=== PATIENT | female | born 1950 | race Two or more races ===

== ENCOUNTER 2019-01-04 10:00 | Inpatient (IN) | payer OTHER ==
[~2019-01-04] VITALS: Ht 167.6 cm; Wt 115.2 kg
[2019-01-04] MEDS ORDERED: MULTIPLE VITAM1 EACH PO (12:23)
[2019-01-04] MEDS ORDERED: HUMULIN (12:23)
[2019-01-04] MEDS ORDERED: SYNTHROID200 MCG PO (12:23)
[2019-01-04] MEDS ORDERED: SINGULAIR10 MG PO (12:24)
[2019-01-04] MEDS ORDERED: JARDIANCE25 MG PO (12:24)
[2019-01-04] MEDS ORDERED: LOSARTAN-HCTZ1 EAC2 PO (12:25)
[2019-01-04] MEDS ORDERED: DILTIAZEM ER180 MG PO (12:25)
[2019-01-04] MEDS ORDERED: LIPITOR20 MG PO (12:25)
[2019-01-04] MEDS ORDERED: GABAPENTIN400 MG PO (12:26)
[2019-01-04] MEDS ORDERED: CALCITRIOL PO (12:27)
[2019-01-04] MEDS ORDERED: FOLGARD TABLET1 EACH PO (12:28)
[2019-01-09] MEDS ORDERED: CALCITRIOL0.5 MCG PO (08:17)
[2019-01-11] MEDS ORDERED: ULTRACET PO (08:29)
[2019-01-11] MEDS ORDERED: INTESTINEX680 M1 PO (08:30)
[2019-01-11] MEDS ORDERED: FLAGYL500MG PO (08:30)
== END 2019-01-11 11:04 | disposition home or self-care (01) | DRG 349 ==
LOC: SURG 10:00 → SURH 01-09 07:54 → O/R 01-09 07:54 → SURH 01-09 13:27 → O/R 01-09 15:15 → SURH 01-11 11:04
PROVIDERS: ADMIT Surgery
PROC: 0KX Muscles, Transfer (ICD-10-PCS; 2019-01-09)
PROC: 0DJD8ZZ Inspection of Lower Intestinal Tract, Via Natural or Artificial Opening Endoscopic (ICD-10-PCS; 2019-01-09)
PROC: 0DBP7ZZ Excision of Rectum, Via Natural or Artificial Opening (ICD-10-PCS; principal; 2019-01-09 15:15)
DX: K62.3 Rectal prolapse (principal); K62.2 Anal prolapse; K59.04 Chronic idiopathic constipation; R15.9 Full incontinence of feces; R15.2 Fecal urgency; K63.89 Other specified diseases of intestine; I10 Essential (primary) hypertension; E11.9 Type 2 diabetes mellitus without complications; Z79.4 Long term (current) use of insulin

== ENCOUNTER 2022-11-03 11:50 | Inpatient (IN) | payer OTHER ==
[~2022-11-03] VITALS: Ht 170.2 cm; Wt 106.6 kg
[~2022-11-03 11:50] MED LIST: CALCITRIOL PO; CALCITRIOL0.5 MCG PO; DILTIAZEM ER180 MG PO; FLAGYL500MG PO; FOLGARD TABLET1 EACH PO; GABAPENTIN400 MG PO; HUMULIN; INTESTINEX680 M1 PO; JARDIANCE25 MG PO; LIPITOR20 MG PO; LOSARTAN-HCTZ1 EAC2 PO; MULTIPLE VITAM1 EACH PO; SINGULAIR10 MG PO; SYNTHROID200 MCG PO; ULTRACET PO
[2022-11-05] MEDS ORDERED: LANTUS SOL100 UNIT/1 (10:31)
[2022-11-12] MEDS ORDERED: TRAM1TAB98 PO (13:23)
== END 2022-11-12 15:13 | disposition home or self-care (01) | DRG 334 ==
LOC: O/R 11-09 05:20 → SURG 11-09 05:20
PROVIDERS: ADMIT Surgery; ATTEND Surgery
PROC: 0KQM0ZZ Repair Perineum Muscle, Open Approach (ICD-10-PCS; 2022-11-09)
PROC: 0DJD8ZZ Inspection of Lower Intestinal Tract, Via Natural or Artificial Opening Endoscopic (ICD-10-PCS; 2022-11-09)
PROC: 3E0F7SF Introduction of Other Gas into Respiratory Tract, Via Natural or Artificial Opening (ICD-10-PCS; 2022-11-09)
PROC: 0DTP7ZZ Resection of Rectum, Via Natural or Artificial Opening (ICD-10-PCS; principal; 2022-11-09 10:30)
DX: K62.3 Rectal prolapse (principal); K59.04 Chronic idiopathic constipation; R15.9 Full incontinence of feces; R15.2 Fecal urgency; R59.0 Localized enlarged lymph nodes; R93.5 Abnormal findings on diagnostic imaging of other abdominal regions, including retroperitoneum; I10 Essential (primary) hypertension; E11.620 Type 2 diabetes mellitus with diabetic dermatitis; Z79.4 Long term (current) use of insulin

== ENCOUNTER 2022-11-05 09:20 | Outpatient (CLI) | payer OTHER ==
[2022-11-05] MEDS ORDERED: LANTUS SOL100 UNIT/1 (10:31)
== END 2022-11-05 09:26 | disposition home or self-care (01) ==
LOC: LAB 09:20
PROVIDERS: ATTEND Surgery
DX: K62.3 Rectal prolapse (principal); K62.2 Anal prolapse; K59.04 Chronic idiopathic constipation; R15.9 Full incontinence of feces; R15.2 Fecal urgency; R93.5 Abnormal findings on diagnostic imaging of other abdominal regions, including retroperitoneum

== ENCOUNTER 2023-07-26 09:00 | Inpatient (IN) | payer OTHER ==
[~2023-07-26 09:00] MED LIST changes: +LANTUS SOL100 UNIT/1; +TRAM1TAB98 PO
[2023-07-26 11:23] LABS: HEMATOCRIT 38.3 % (36.0-45.00); HEMOGLOBIN 12.7 g/dL (12.0-15.00); MEAN CELL VOLUME 83.7 fL (80.00-100.00); MEAN CORPUSCULAR HEMOGLOBIN 27.7 pg (27.00-32.0); MEAN CORPUSCULAR HGB CONC 33.1 g/dl (32.0-36.0); PLATELET COUNT 385 K/uL (150-450); RED BLOOD COUNT 4.58 M/uL (4.00-6.00); RED CELL DISTRIBUTION WIDTH 15.2 % (11.5-14.5)
[2023-07-26 11:32] LABS: URINE APPEARANCE Clear; URINE BILIRRUBIN Negative (NEGATIVE); URINE BLOOD Negative; URINE COLOR Yellow; URINE LEUKOCYTE Negative; URINE NITRATE Negative; URINE PROTEIN Negative (NEGATIVE)
[2023-07-26 11:39] LABS: URINE BACTERIA 182.6 uL (0.0-1933); URINE RBC 21.2 uL (0.0-20.8); URINE WBC 10.6 uL (0.0-23.2)
[2023-07-26 11:41] LABS: URINE GLUCOSE >=1000 MG/DL (NEGATIVE)
[2023-07-26 11:59] LABS: INR 0.97; PARTIAL THROMBOPLASTIN TIME 26.8 SECONDS (22.0-34.0); PROTHROMBIN TIME 10.2 SECONDS (9.0-11.5)
[2023-07-26 12:15] LABS: ALBUMIN 3.4 gm/dL (3.4-5.0); BILIRUBIN TOTAL 0.48 mg/dL (0.3-1.2); CALCIUM 8.5 mg/dL (8.5-10.1); CREATININE SERUM 0.72 mg/dL (0.55-1.02); GFR 79.85; POTASSIUM 4.06 mEq/L (3.5-5.1); TOTAL PROTEIN 7.4 gm/dL (6.4-8.2)
[2023-08-05] MEDS ORDERED: DIBUCAINE 15 GM OINT..GM. TUBE ONE (11:18)
[2023-08-05] MEDS ORDERED: LIDOCAINE HCL/EPINEPHRINE 20 ML VIAL IJ ONE ×2 (11:18→11:45)
[2023-08-05] MEDS ORDERED: POVIDONE-IODINE 118 ML BOTT TOP ONE ×2 (11:18→11:45)
[2023-08-05] MEDS ORDERED: BUPIVACAINE HCL/PF 0.5% 30ML ML ONE (11:18)
[2023-08-05] MEDS ORDERED: HEMOSTATIC MATRIX 1 KIT KIT TOP ONE ×2 (11:45→12:47)
[2023-08-05] MEDS ORDERED: BUPIVACAINE HCL/PF 2.5 MG/ML 30ML VIAL InF ONE (11:45)
[2023-08-05] MEDS ORDERED: DIBUCAINE 15 GM OINT..GM. TUBE RECTAL ONE (11:45)
[2023-08-05] MEDS ORDERED: CEFTRIAXONE SODIUM 2,000 MG VIAL IV ONE (13:15)
[2023-08-05] MEDS ORDERED: METRONIDAZOLE/SODIUM CHLORIDE 500 MG/100 ML PIGGYBACK IV ONE (13:15)
[2023-08-05] MEDS ORDERED: ONDANSETRON HCL 2 MG/ML VIAL IV PRN (14:00)
[2023-08-05] MEDS ORDERED: ACETAMINOPHEN 500 MG GEL..CAP PO SCH (14:00)
[2023-08-05] MEDS ORDERED: 0.9 % SODIUM CHLORIDE 1,000 ML IV SCH (14:00)
[2023-08-05] MEDS ORDERED: MORPHINE SULFATE 4 MG/ML VIAL IV PRN (14:00)
[2023-08-05] MEDS ORDERED: DEXTROSE 50 % IN WATER 0.5 G/ML DISP.SYRIN IV PRN (14:00)
[2023-08-05] MEDS ORDERED: OxyCODONE HCL 5 MG TABLET (ROXICODONE) PO PRN (14:00)
[2023-08-05] MEDS ORDERED: INSULIN LISPRO 1,000 UNIT/10 ML UNITS SUBCUTANEO SCH (16:00)
[2023-08-05] MEDS ORDERED: INSULIN LISPRO 1,000 UNIT/10 ML UNITS SUBCUTANEO ONE (16:36)
[2023-08-05 16:43] LABS: HEMATOCRIT 36.6 % (36.0-45.00); HEMOGLOBIN 12.4 g/dL (12.0-15.00); MEAN CELL VOLUME 85.3 fL (80.00-100.00); MEAN CORPUSCULAR HEMOGLOBIN 28.8 pg (27.00-32.0); MEAN CORPUSCULAR HGB CONC 33.7 g/dl (32.0-36.0); PLATELET COUNT 347 K/uL (150-450); RED CELL DISTRIBUTION WIDTH 15.4 % (11.5-14.5)
[2023-08-05] MEDS ORDERED: POLYETHYLENE GLYCOL 3350 17 GM BLIST.PACK PO SCH (17:00)
[2023-08-05] MEDS ORDERED: HYOSCYAMINE SULFATE 0.125 MG TAB.SUBL SL SCH (17:00)
[2023-08-05] MEDS ORDERED: METRONIDAZOLE/SODIUM CHLORIDE 500 MG/100 ML PIGGYBACK IV SCH (17:00)
[2023-08-05] MEDS ORDERED: GABAPENTIN 300 MG CAPSULE PO SCH (17:00)
[2023-08-05 17:06] LABS: ALBUMIN 3.1 gm/dL (3.4-5.0); CREATININE SERUM 0.86 mg/dL (0.55-1.02); GFR 65.05; PHOSPHOROUS 3.6 mg/dL (2.5-4.9); POTASSIUM 3.83 mEq/L (3.5-5.1)
[2023-08-05] MEDS ORDERED: FAMOTIDINE/PF 20 MG/2 ML VIAL IV PUSH SCH (21:00)
[2023-08-06] MEDS ORDERED: LEVOTHYROXINE SODIUM 175 MCG TABLET PO SCH (06:00)
[2023-08-06 06:57] LABS: HEMATOCRIT 36.7 % (36.0-45.00); HEMOGLOBIN 12.2 g/dL (12.0-15.00); MEAN CELL VOLUME 85.2 fL (80.00-100.00); MEAN CORPUSCULAR HEMOGLOBIN 28.4 pg (27.00-32.0); MEAN CORPUSCULAR HGB CONC 33.3 g/dl (32.0-36.0); PLATELET COUNT 334 K/uL (150-450); RED BLOOD COUNT 4.31 M/uL (4.00-6.00); RED CELL DISTRIBUTION WIDTH 15.4 % (11.5-14.5)
[2023-08-06 07:27] LABS: ALBUMIN 2.9 gm/dL (3.4-5.0); CALCIUM 7.7 mg/dL (8.5-10.1); CREATININE SERUM 0.8 mg/dL (0.55-1.02); GFR 70.71; MAGNESIUM 2.2 mg/dL (1.8-2.4); PHOSPHOROUS 3.2 mg/dL (2.5-4.9); POTASSIUM 3.55 mEq/L (3.5-5.1)
[2023-08-06] MEDS ORDERED: LOSARTAN/HYDROCHLOROTHIAZIDE 1 TAB TABLET PO SCH (09:00)
[2023-08-06] MEDS ORDERED: DILTIAZEM HCL 180 MG CAP.SR.24H PO SCH (09:00)
[2023-08-06] MEDS ORDERED: ENOXAPARIN SODIUM 40 MG/0.4 ML SYRINGE SUBCUTANEO SCH (17:00)
[2023-08-07] MEDS ORDERED: ENOXAPARIN SODIUM 40 MG/0.4 ML SYRINGE SUBCUTANEO SCH (09:00)
[2023-08-07] MEDS ORDERED: LEVALBUTEROL HCL 0.63 MG/3 ML SOLUTION IH SCH (13:00)
[2023-08-08] MEDS ORDERED: HYOSCYAMINE0.125 M1 SL (13:42)
== END 2023-08-08 15:21 | disposition home or self-care (01) | DRG 349 ==
LOC: SURG 08-05 09:00 → O/R 08-05 09:39 → SURH 08-05 09:39 → SURG 08-05 13:45 → SURH 08-05 14:41
PROVIDERS: ADMIT Surgery; ATTEND Surgery
PROC: 0DBP8ZZ Excision of Rectum, Via Natural or Artificial Opening Endoscopic (ICD-10-PCS; 2023-08-05)
PROC: 0DQR0ZZ Repair Anal Sphincter, Open Approach (ICD-10-PCS; principal; 2023-08-05 13:45)
PROC: BW28ZZZ Computerized Tomography (CT Scan) of Head (ICD-10-PCS; 2023-08-07)
PROC: 3E0F7GC Introduction of Other Therapeutic Substance into Respiratory Tract, Via Natural or Artificial Opening (ICD-10-PCS; 2023-08-08)
DX: K62.3 Rectal prolapse (principal); K59.09 Other constipation; K59.04 Chronic idiopathic constipation